=== PATIENT | female | born 2000 | race Caucasian/White ===

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

== ENCOUNTER → 2020-02-26 | Outpatient (REF) | payer MEDICAID, OTHER | LOC: M SFHCWAGY 16:49 | PROVIDERS: ATTEND Nurse Practitioner Women's Health | DX: Z11.3 Encounter for screening for infections with a predominantly sexual mode of transmission (principal) ==

== ENCOUNTER 2020-04-22 19:15 | Emergency (ER) | payer MEDICAID, OTHER ==
[~2020-04-22] VITALS: Ht 160 cm; Wt 82.3 kg
[2020-04-22 19:17] VITALS: BP 125/58
[2020-04-22] MEDS ORDERED: CLONI1TA PO (19:34)
[2020-04-22] MEDS ORDERED: LAMO25TA4 PO (19:34)
[2020-04-22] MEDS ORDERED: ZOLO50TA PO (19:34)
[2020-04-22] MEDS ORDERED: diazePAM 10 MG TAB PO ONE (21:00)
[2020-04-22] MEDS ORDERED: LIDOCAINE 5% (LIDODERM) PATCH TD ONE (21:00)
[2020-04-22] MEDS ORDERED: **NOTE PATIENT COMMENT** MISC XX SCH (21:00)
[2020-04-22] MEDS ORDERED: KETOROLAC 60MG 2ML VIAL IM ONE (21:00)
[2020-04-22] MEDS ORDERED: ASPE4PAD TOP (22:18)
[2020-04-22] MEDS ORDERED: ROBA750T4 PO (22:18)
[2020-04-22] MEDS ORDERED: NAPR-837 PO (22:19)
== END 2020-04-22 22:30 | disposition home or self-care (01) ==
LOC: M ED 19:15
DX: S39.012A Strain of muscle, fascia and tendon of lower back, initial encounter (principal); Y92.9 Unspecified place or not applicable; Y93.9 Activity, unspecified; Y99.9 Unspecified external cause status; F17.200 Nicotine dependence, unspecified, uncomplicated; Z79.899 Other long term (current) drug therapy
CPT/HCPCS: 96372; 99282; J1885

== ENCOUNTER → 2020-07-23 | Outpatient (CLI) | payer SELFPAY ==
[~2020-07-23] MED LIST changes: +ASPE4PAD TOP; +CLONI1TA PO; +LAMO25TA4 PO; +NAPR-837 PO; +ROBA750T4 PO; +ZOLO50TA PO
== END ==
LOC: M LABSMTC 11:55
PROVIDERS: ATTEND Pediatrics
DX: Z20.822 Contact with and (suspected) exposure to COVID-19 (principal)

== ENCOUNTER 2021-05-25 09:50 | Emergency (ER) | payer OTHER ==
[~2021-05-25] VITALS: Ht 160 cm; Wt 58.6 kg
[2021-05-25 09:50] VITALS: BP 109/57
== END 2021-05-25 11:54 | disposition home or self-care (01) ==
LOC: M ED 09:50
DX: J06.9 Acute upper respiratory infection, unspecified (principal); F32.A Depression, unspecified; F31.9 Bipolar disorder, unspecified; F90.1 Attention-deficit hyperactivity disorder, predominantly hyperactive type; F17.200 Nicotine dependence, unspecified, uncomplicated; F12.10 Cannabis abuse, uncomplicated; Z79.899 Other long term (current) drug therapy

== ENCOUNTER 2022-05-03 09:16 | Emergency (ER) | payer MEDICAID, OTHER, SELFPAY ==
[~2022-05-03] VITALS: Ht 160 cm; Wt 47.6 kg
[2022-05-03] MEDS ORDERED: ACETAMINOPHEN 500 MG TAB PO ONE (11:30)
[2022-05-03 12:29] LABS: BASO % 0.3 % (0.0-1.0); EOS % 0.1 % (0.0-3.0); HEMATOCRIT 38.5 % (36.0-47.0); LYMPH # 0.5 10^3/uL (1.5-5.0); LYMPH % 4.5 % (24.0-44.0); MEAN CORPUSCULAR HEMOGLOBIN 30.2 pg (27.0-33.0); MEAN CORPUSCULAR HGB CONC 33.8 g/dl (32.0-36.5); MEAN CORPUSCULAR VOLUME 89.5 fl (80.0-96.0); MONO # 0.2 10^3/uL (0.0-0.8); MONO % 1.9 % (2.0-8.0); NEUTROPHILS # 10.3 10^3/uL (1.5-8.5); NEUTROPHILS % 92.8 % (36.0-66.0); PLATELET COUNT, AUTOMATED 328 10^3/uL (150-450); WHITE BLOOD COUNT 11.1 10^3/uL (4.0-10.0)
[2022-05-03 12:49] LABS: ALBUMIN 3.7 G/DL (3.2-5.2); ALKALINE PHOSPHATASE 59 U/L (46-116); ALT/SGPT 11 U/L (7.0-40); AST/SGOT 23 U/L (<34); BILIRUBIN,TOTAL 0.8 MG/DL (0.3-1.2); BLOOD UREA NITROGEN 9 MG/DL (9-23); CALCIUM LEVEL 9.7 MG/DL (8.5-10.1); CARBON DIOXIDE LEVEL 25 MMOL/L (20-31); CHLORIDE LEVEL 100 MMOL/L (98-107); CREATININE FOR GFR 0.62 MG/DL (0.55-1.30); GLOMERULAR FILTRATION RATE > 60.0 (>60); GLUCOSE, FASTING 96 MG/DL (60-100); POTASSIUM SERUM 3.7 MMOL/L (3.5-5.1); SODIUM LEVEL 135 MMOL/L (136-145); TOTAL PROTEIN 7.4 G/DL (5.7-8.2)
[2022-05-03 12:56] LABS: FREE THYROXINE INDEX 3.9 % (1.3-4.8); THYROID STIMULATING HORMONE 0.744 uIU/ML (0.55-4.78); THYROXINE (T4) 9.7 UG/DL (4.5-10.9)
[2022-05-03 13:32] VITALS: BP 110/62
== END 2022-05-03 13:35 | disposition home or self-care (01) ==
LOC: M ED 09:16
DX: J06.9 Acute upper respiratory infection, unspecified (principal); R42 Dizziness and giddiness

== ENCOUNTER → 2022-08-20 | Outpatient (CLI) | payer OTHER ==
[2022-08-20 14:05] LABS: HEMATOCRIT 39.8 % (36.0-47.0); HEMOGLOBIN 13.3 g/dl (12.0-15.5); MEAN CORPUSCULAR HEMOGLOBIN 30.5 pg (27.0-33.0); MEAN CORPUSCULAR HGB CONC 33.4 g/dl (32.0-36.5); MEAN CORPUSCULAR VOLUME 91.3 fl (80.0-96.0); PLATELET COUNT, AUTOMATED 220 10^3/uL (150-450); RED BLOOD COUNT 4.36 10^6/uL (4.00-5.40); WHITE BLOOD COUNT 5.5 10^3/uL (4.0-10.0)
[2022-08-20 14:19] LABS: INR 0.95; PROTHROMBIN TIME 12.9 SECONDS (12.5-14.5)
[2022-08-20 14:20] LABS: PARTIAL THROMBOPLASTIN TIME 28.1 SECONDS (24.8-34.2)
[2022-08-20 14:37] LABS: BLOOD UREA NITROGEN 11 MG/DL (9-23); CALCIUM LEVEL 9.1 MG/DL (8.5-10.1); CARBON DIOXIDE LEVEL 29 MMOL/L (20-31); CHLORIDE LEVEL 104 MMOL/L (98-107); CREATININE FOR GFR 0.61 MG/DL (0.55-1.30); GLOMERULAR FILTRATION RATE > 60.0 (>60); GLUCOSE, FASTING 78 MG/DL (60-100); POTASSIUM SERUM 4.4 MMOL/L (3.5-5.1); SODIUM LEVEL 138 MMOL/L (136-145)
[2022-08-20 14:41] LABS: FREE T4 1.18 NG/DL (0.89-1.76); THYROID STIMULATING HORMONE 1.194 uIU/ML (0.55-4.78)
[2022-08-20 14:46] LABS: HEPATITIS B SURFACE ANTIBODY NEGATIVE (POSITIVE)
[2022-08-20 14:58] LABS: HEPATITIS B SURFACE ANTIGEN NEGATIVE (NEGATIVE)
[2022-08-20 15:11] LABS: HIV 1&2 SCREEN CENTAUR NEGATIVE (NEGATIVE)
[2022-08-20 15:26] LABS: GC DNA AMPLIFICATION NEGATIVE (NEGATIVE)
[2022-08-21 21:06] LABS: HEPATITIS B CORE ANTIBODY IGG Negative (Negative)
== END ==
LOC: M PLALAB 12:00
PROVIDERS: ATTEND Family Medicine
DX: Z11.9 Encounter for screening for infectious and parasitic diseases, unspecified (principal); R68.89 Other general symptoms and signs; R23.3 Spontaneous ecchymoses; R42 Dizziness and giddiness

== ENCOUNTER → 2022-12-26 | Outpatient (REF) | payer OTHER | LOC: M LAB REF 17:17 | PROVIDERS: ATTEND Physician Assistant | DX: N76.0 Acute vaginitis (principal) ==

== ENCOUNTER → 2023-07-04 | Outpatient (REF) | payer OTHER | LOC: M SFHCWAGY 08:16 | PROVIDERS: ATTEND Nurse Practitioner Family | DX: Z12.4 Encounter for screening for malignant neoplasm of cervix (principal) ==